=== PATIENT | male | born 1985 | race Two or more races ===

== ENCOUNTER 2017-01-27 11:00 | Emergency (ER) | payer BC ==
[2017-01-27 11:06] VITALS: BMI 25.4
--- NOTE | 2017-01-27 12:30 | PDOC ---
History of Present Illness - General Chief Complaint: Pain Stated Complaint: ABD PAIN Time Seen by Provider: 01/27/17 11:42 History Source: Patient Exam Limitations: No Limitations - History of Present Illness Initial Comments: 01/27/17 12:25 Patient is a 31-year-old male, no significant medical history currently on no medications sent by Dr. Yin for rule out appendicitis, right lower quadrant pain. Sent with prescription for CT. patient denies any urinary symptoms, no chest pain, no shortness of breath, no back pain. No hematuria. No penile discharge, no urinary pain or pressure. No nausea, vomiting,or diarrhea , no fever. Patient reports that he [place] [employer] , thought he may have pulled a muscle. Past Medical History: Denies. Allergies: No known allergies Medications: None Family History: Non-contributory Social History: Denies smoking, alcohol use, or IVDU Vital signs on arrival are notable for pulse of 69. Review of Systems GENERAL/CONSTITUTIONAL: No fever or chills. No weakness. No weight change. HEAD, EYES, EARS, NOSE AND THROAT: No change in vision. No ear pain or discharge. No sore throat. CARDIOVASCULAR: No chest pain or shortness of breath. RESPIRATORY: No cough, wheezing, or hemoptysis. GASTROINTESTINAL: No nausea, vomiting, diarrhea or constipation. No rectal bleeding. GENITOURINARY: No dysuria, frequency, or change in urination. MUSCULOSKELETAL: No joint or muscle swelling or pain. No neck or back pain. SKIN AND BREASTS: No rash or easy bruising. NEUROLOGIC: No headache, vertigo, loss of consciousness, or loss of sensation. PSYCHIATRIC: No depression or anxiety. ENDOCRINE: No increased thirst. No abnormal weight change. HEMATOLOGIC/LYMPHATIC: No anemia, easy bleeding, or history of blood clots. ALLERGIC/IMMUNOLOGIC: No hives or skin allergy. No latex allergy. Physical Exam: GENERAL: The patient is awake, alert, and fully oriented, in no acute distress. HEAD: Normal with no signs of trauma. EYES: Pupils equal, round and reactive to light, extraocular movements intact, sclera anicteric, conjunctiva clear. ENT: Ears normal, nares patent, oropharynx clear without exudates. Moist mucous membranes. No uvula deviation NECK: Normal range of motion, supple without lymphadenopathy, JVD, or masses. LUNGS: Breath sounds equal, clear to auscultation bilaterally. No wheezes, and no crackles. HEART: Regular rate and rhythm, normal S1 and S2 without murmur, rub or gallop. ABDOMEN: Mild right lower quadrant rebound tenderness otherwise negative psoas, negative rosving, negative obturator. No masses. No bruising or abrasions, Pain reproducable with movement. No fluctuance or evidence of hernia. MUSCULOSKELETAL: Normal range of motion, no edema. No clubbing or cyanosis. No cords, erythema, or tenderness. No CVA Tenderness with fist. NEUROLOGICAL: Cranial nerves II through XII grossly intact. Normal speech, normal gait. SKIN: Warm, Dry, normal turgor, no rashes or lesions noted. Past History - Past Medical History Allergies/Adverse Reactions: Allergies Allergy/AdvReac Type Severity Reaction Status Date / Time No Known Allergies Allergy Unverified 01/27/17 11:03 Home Medications: Ambulatory Orders NK [No Known Home Medication] 01/27/17 Anemia: No Asthma: No Cancer: No Cardiac Disorders: No CVA: No COPD: No CHF: No Dementia: No Diabetes: No GI Disorders: No Disorders: No HTN: No Hypercholesterolemia: No Kidney Stones: No Liver Disease: No Seizures: No Thyroid Disease: No - Surgical History Abdominal Surgery: No Appendectomy: No Cardiac Surgery: No Cholecystectomy: No Lung Surgery: No Neurologic Surgery: No Orthopedic Surgery: No - Reproductive History Testicular Surgery: No - Suicide/Smoking/Psychosocial Hx Smoking History: Former smoker Have you smoked in the past 12 months: Yes Number of Cigarettes Smoked Daily: 10 Cigars Per Day: 3 Information on smoking cessation initiated: No 'Breaking Loose' booklet given: 08/10/12 Hx Alcohol Use: No Drug/Substance Use Hx: No Substance Use Type: Alcohol, Cocaine Hx Substance Use Treatment: Yes Abd/GI Specific PMHX - Complaint Specific PMHX Hepatitis: No Pancreatitis: No *Physical Exam - Vital Signs Last Vital Signs Temp Pulse Resp BP Pulse Ox 97.7 F 69 18 127/85 100 01/27/17 11:04 01/27/17 11:04 01/27/17 11:04 01/27/17 11:04 01/27/17 11:04 ED Treatment Course - LABORATORY CBC & Chemistry Diagram: 01/27/17 12:30 01/27/17 12:30 Medical Decision Making - Medical Decision Making 01/27/17 12:28 A/P: Patient sent here by Dr. Yin to rule out appendicitis. Plan: CBC, CMP Laboratory Results - last 24 hr 01/27/17 01/27/17 01/27/17 12:20 12:30 12:30 WBC 4.4 RBC 5.60 Hgb 16.1 Hct 48.1 MCV 85.9 MCH 28.8 MCHC 33.5 RDW 12.8 Plt Count 193 MPV 9.0 Neutrophils % 41.9 L Lymphocytes % 46.3 H Monocytes % 10.2 Eosinophils % 1.2 Basophils % 0.4 Sodium 139 Potassium 4.0 Chloride 102 Carbon Dioxide 27 Anion Gap 10 BUN 6 L Creatinine 0.9 Creat Clearance w eGFR > 60 Random Glucose 89 Calcium 8.8 Total Bilirubin 0.5 AST 20 ALT 38 Alkaline Phosphatase 82 Total Protein 7.7 Albumin 4.3 Urine Color Yellow Urine Appearance Slcloudy Urine pH 8.0 Ur Specific Harvey 1.014 Urine Protein Negative Urine Glucose (UA) Negative Urine Ketones Negative Urine Blood Negative Urine Nitrite Negative Urine Bilirubin Negative Urine Urobilinogen Negative CBC reveals no anemia, leukocytosis, bandemia, lymphocytosis, or neutrophilia. Platelets are within normal values at this time. CMP reveals no electrolyte imbalance, there is no transaminitis, renal function is normal, there is no hyperbilirubinemia. Urinalysis reveals no urinary tract infection. CT scan abdomen and pelvis with by mouth contrast ordered to rule out AP. 01/27/17 15:55 CT scan refusing IV contrast will perform CT noncontrast. 01/27/17 17:03 CT scan is negative for acute appendicitis or abdominal or pelvic etiology. We' ll DC patient home, follow-up with PMD. I discussed the physical exam findings, ancillary test results and final diagnoses with the patient. I answered all of the patient's questions. The patient was satisfied with the care received and felt comfortable with the discharge plan and treatment plan. The patient will call to arrange follow-up and will return to the Emergency Department with any new, persistent or worsening symptoms. *DC/Admit/Observation/Transfer Diagnosis at time of Disposition: Abdominal muscle strain Qualifiers: Encounter type: initial encounter Qualified Code(s): S39.011A - Strain of muscle, fascia and tendon of abdomen, initial encounter Abdominal pain Qualifiers: Abdominal location: right lower quadrant Qualified Code(s): R10.31 - Right lower quadrant pain - Discharge Dispostion Disposition: HOME Condition at time of disposition: Good Admit: No - Referrals Referrals: Harman Yin MD [Primary Care Provider] - - Patient Instructions Printed Discharge Instructions: DI for Abdominal Muscle Strain Additional Instructions: Recommend no heavy lifting without support. Follow up with Dr. Yin. Motrin for pain If any increased pain, fever, nausea, vomiting or other concerns return to the ER. - Post Discharge Activity Forms/Work/School Notes: Back to Work
[2017-01-27 12:40] LABS: BASOPHIL 0.4 % (0-2.0); EOSINOPHIL 1.2 % (0-4.5); MCH 28.8 pg (25.7-33.7); MCHC 33.5 g/dl (32.0-35.9); MEAN CELL VOLUME 85.9 fl (80-96); NEUTROPHILS 41.9 % (42.8-82.8); PLATELET COUNT 193 K/MM3 (134-434); RDW 12.8 % (11.9-15.9); WHITE BLOOD COUNT 4.4 K/mm3 (4.0-10.0)
[2017-01-27 12:57] LABS: ALBUMIN 4.3 g/dl (3.4-5.0); ANION GAP 10 (8-16); CALCIUM 8.8 mg/dL (8.5-10.1); CO2 27 mmol/L (21-32); GLUCOSE,RANDOM 89 mg/dL (74-106)
--- NOTE | 2017-01-27 12:58 | PDOC ---
*Physical Exam - Vital Signs Last Vital Signs Temp Pulse Resp BP Pulse Ox 97.7 F 69 18 127/85 100 01/27/17 11:04 01/27/17 11:04 01/27/17 11:04 01/27/17 11:04 01/27/17 11:04 ED Treatment Course - LABORATORY CBC & Chemistry Diagram: 01/27/17 12:30 01/27/17 12:30 - ADDITIONAL ORDERS Additional order review: 01/27/17 12:30 RBC 5.60 MCV 85.9 MCHC 33.5 RDW 12.8 MPV 9.0 Neutrophils % 41.9 L Lymphocytes % 46.3 H Monocytes % 10.2 Eosinophils % 1.2 Basophils % 0.4 Medical Decision Making - Medical Decision Making 01/27/17 12:58 Pt seen by the Advanced Practice Provider under my direct supervision Ancillary studies reviewed I agree with plan as outlined by the Advanced Practice Provider [employer] Andolino *DC/Admit/Observation/Transfer - Referrals Referrals: Harman Yin MD [Primary Care Provider] - - Patient Instructions - Post Discharge Activity
[2017-01-27 13:01] LABS: ALK PHOS 82 U/L (45-117); BILIRUBIN,TOTAL 0.5 mg/dL (0.2-1.0); CREATININE 0.9 mg/dL (0.7-1.3); SGOT/AST 20 U/L (15-37); SGPT/ALT 38 U/L (12-78); TOT PROT 7.7 g/dl (6.4-8.2)
[2017-01-27 13:03] LABS: URINE APPEARANCE SLCLOUDY; URINE BILIRUBIN NEGATIVE (NEGATIVE); URINE BLOOD NEGATIVE (NEGATIVE); URINE COLOR YELLOW; URINE GLUCOSE (UA) NEGATIVE (NEGATIVE); URINE KETONE NEGATIVE (NEGATIVE); URINE NITRITE NEGATIVE (NEGATIVE); URINE PROTEIN NEGATIVE (NEGATIVE); URINE UROBILINOGEN NEGATIVE mg/dL (0.2-1.0)
[2017-01-27 17:02] VITALS: BP 122/86; PULSE 79; TEMP 97.9
[2017-01-27 20:05] LABS: URINE LEUK ESTERASE Negative (NEGATIVE)
== END 2017-01-27 17:02 | disposition home or self-care (01) ==
LOC: JER 11:00
DX: S39.011A Strain of muscle, fascia and tendon of abdomen, initial encounter (principal); X50.0XXA Overexertion from strenuous movement or load, initial encounter; Y93.89 Activity, other specified; Y92.85 Railroad track as the place of occurrence of the external cause; Y99.0 Civilian activity done for income or pay
CPT/HCPCS: 36415; 74176-TC; 80053; 81003; 85025; 87086; 87491; 87591; 99283-25

== ENCOUNTER 2017-08-03 07:55 | Emergency (ER) | payer BC ==
[2017-08-03 08:05] VITALS: BP 130/71; PULSE 81; BMI 23.7
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
[2017-08-03] MEDS ORDERED: IBUPROFEN 400 MG TABLET (FP) PO ONE ×2 (08:55→09:01)
== END 2017-08-03 09:19 | disposition home or self-care (01) ==
LOC: JERFT 07:55
DX: M62.830 Muscle spasm of back (principal); V89.2XXA Person injured in unspecified motor-vehicle accident, traffic, initial encounter; Y92.488 Other paved roadways as the place of occurrence of the external cause; Y93.89 Activity, other specified; Y99.8 Other external cause status
CPT/HCPCS: 99281-25